=== PATIENT | female | born 1950 | race Caucasian/White ===

== ENCOUNTER 2024-10-24 17:52 | Emergency (ER) | payer BC, SELFPAY ==
--- NOTE | ~2024-10-24 | CT_ITS ---
CLINICAL HISTORY: right flank pain CT abdomen and pelvis without contrast Comparison: None Findings: No consolidation or effusion. Large hiatal hernia. There are 2 rounded calculi within the distal right ureter, just above the ureterovesicular junction, the larger measuring up to 3 mm. There is mild resulting hydroureteronephrosis. No left urinary calculus. The liver demonstrates cysts. The spleen, adrenal glands and pancreas are unremarkable. No bowel obstruction, free air, free fluid, abscess or adenopathy. Left adnexal cyst measuring up to 6.7 cm. Moderate atherosclerotic disease. No acute osseous finding. Moderate rotatory scoliosis present. Impression: There are calculi within the distal right ureter just above the ureterovesicular junction. Mild resulting hydroureteronephrosis. 6.7 cm left adnexal cyst. Given patient age, outpatient ultrasound recommended. Several incidental findings. This document has been electronically signed by: Talat Hugo MD on 10/24/2024 20:28:34
[2024-10-24 18:10] VITALS: BP 164/84; PULSE 80; O2SAT 98
[2024-10-24 18:15] VITALS: BP 135/59; PULSE 71; RESP 18; TEMP 36.7; O2SAT 97; BMI 33.9
--- OUTSIDE RECORDS SUMMARY | 2024-10-24 19:13 | XMS_ITS | Data Portability ---
Author Organization [facility], [facility] Address [address] [place] [address] Care Team Providers Care Medical Device Engineer Name Role Phone ABI YANG Primary Care Provider [phone] Assessment Encounter Date Assessment Date Assessment LastModified by Organization Details LastModified Time 08/11/2024 08/11/2024 I am seeing the patient today under the supervision of Dr Lynn who was available but who did not see the patient. [email or web address] Not available 08/11/2024 08:24:45 08/14/2024 08/14/2024 Assessment: Patient presents with symptoms that are consistent with knee OA. Demonstrates good understanding of home program, post-operative mechanics for gait and stairs, and expectations following surgery. Plan: Discharge patient to knee OA safe [facility]. Pt to follow up with out-patient PT elsewhere postoperatively [email or web address] Not available 08/14/2024 14:16:42 08/15/2024 08/15/2024 SURGICAL HISTORY AND PHYSICAL PRIMARY DIAGNOSIS: Osteoarthritis of the right knee. REASON FOR ADMISSION: The patient is being admitted for right total knee arthroplasty by Dr. Stinson on 08/22/2024. HISTORY OF PRESENT ILLNESS: Ms. Silva is a very pleasant 74-year-old female with complaints of right-sided knee pain. She has a known longstanding history of right knee osteoarthritis, which has failed conservative management. The patient reports the pain is severe and worse with activity and has gotten to the point where it is affecting her ability to perform activities of daily living as well as daily social tasks. She has tried and failed anti-inflammatory pain medications, Tylenol and home exercise program, and she is now ready to pursue a right total knee by Dr. Stinson on 08/22/2024. PAST MEDICAL HISTORY: 1. Osteoarthritis of the right knee. 2. Obesity with a BMI of 35.3. 3. Hypertension. 4. Hyperlipidemia. 5. Hypothyroidism. 6. Osteoporosis/osteo penia. 7. GERD. 8. Allergic rhinitis. 9. UTIs. Her last one was in 06/2024. She denies any current symptoms. 10. Hiatal hernia. PAST SURGICAL HISTORY: 1. She had an upper endoscopy in the past. 2. Tonsillectomy. 3. Benign ovarian cyst removal. MEDICATIONS: Current list of medications includes: 1. Amlodipine 5 mg in the morning. 2. Atenolol 25 mg daily. 3. Cranberry fotx-qab-kpdfqnu pill. 4. Docusate 100 mg twice a day as needed for constipation. 5. Estradiol 0.1 mg vaginal cream 3 times a week. 6. Flonase Sensimist she uses daily to her bilateral nostrils. 7. Levoxyl 0.112 mg daily at bedtime. 8. Omeprazole 20 mg in the morning. 9. Simvastatin 10 mg at bedtime. 10. Vitamin D. ALLERGIES: No known drug allergies. SOCIAL HISTORY: The patient is . She reports a rare alcoholic beverage. Denies any tobacco or illicit drug use. PHYSICIANS: The patient's primary care physician is Abi Yang M.D. REVIEW OF SYSTEMS: The patient's 12-point review of systems is negative with the exception in the HPI. She does endorse baseline mild constipation. PHYSICAL EXAMINATION: VITAL SIGNS: Weight is 199 pounds. GENERAL: Alert and oriented with normal insight, affect, and grooming. SKIN: Intact without rash or lesions. Nails without clubbing or cyanosis. HEENT: Normocephalic. Conjunctivae are pink. Sclerae are anicteric. NECK: Supple. Trachea midline. CHEST: Lungs are clear to auscultation bilaterally and breathing is unlabored. CARDIOVASCULAR: Heart has a regular rate and rhythm with normal S1, S2. No murmurs, rubs or gallops appreciated. EXTREMITIES: Lower extremities: The patient has negative straight leg raise test bilaterally. Bilateral hips have full range of motion without pain. Bilateral knees with slight valgus alignment, range of motion is 5-120. On the right side, she has severe tenderness and crepitus laterally with no instability and mild effusion. On the left side, she has moderate tenderness and crepitus laterally with no instability and mild effusion. Calves are supple and nontender. Ankle motion is satisfactory. Pedal pulses palpable bilaterally and skin about the feet is intact. PREOPERATIVE DIAGNOSTIC DATA: Orthopedic x-rays demonstrate end-stage osteoarthritis of the right knee. There is kozi-ah-ufcf articulation, subchondral sclerosis and osteophyte formation. EKG reads normal sinus rhythm with a rightward axis at 63 beats per minute. LABORATORY DATA: Demonstrates platelets of 150. Electrolytes within normal limits. BUN, creatinine and coags within normal limits. Hemoglobin A1c is 5.5. ASSESSMENT AND PLAN: The patient has advanced osteoarthritis of the right knee and is now scheduled for right total knee arthroplasty by Dr. Stinson on 08/22/2024, she was seen by the med consult program for preoperative clearance, who considered her a low pulmonary and cardiovascular risk for surgery. She will receive IV TXA and be placed on aspirin postoperatively for DVT prophylaxis. Discharge plans will be to home with services. The patient is unsure whether she would like to stay overnight. She has been counseled regarding the risks and benefits of the proposed procedure. Her questions have been answered and she acknowledges understanding. The patient wishes to proceed with surgery. CONTACTS: Her daughter, Lucila, with a phone number of [phone]. Prescriptions given today include Celebrex. She will require prescriptions for aspirin, MiraLax and pain medicine upon discharge from the hospital. She already takes omeprazole and has Colace. [email or web address] Not available 08/15/2024 12:16:39 Plan of Treatment Reminders Order Date Submit Date Provider Last Modified By Organization Details Last Modified Time Details Appointments RECHECK 15 2024 08:00A Donis Dennis PA-C Not available Not available Not available RECHECK 2024 08:00A Donis Stinson MD Not available Not available Not available Lab None recorded. Referral None recorded. Procedures None recorded. Surgeries None recorded. Imaging XR, knee, 3 view - room 206 RTKR with AL 2024 025 [email or web address], [address], [address], [place], [address], 09/11/2024 16:03:22 Medication Orders amoxicill in 500 mg capsule 2024 025 [id number], [address] [place], [address], 09/05/2024 14:50:28 Celebrex 200 mg capsule 2024 025 [id number], [address] [place], [address], 08/15/2024 11:09:41 Patient TargetsNo targets recorded. Patient InstructionsNo instructions recorded. Reason for Referral None Reported. Results Created Date Observation Date Name Description Value Unit Range Abnormal Flag Note LastModifiedBy Organization Detail LastModifiedTime 08/03/1908/04/2024 CBC WITH DIFFE RENTI AL/PL ATELE T WBC 6.0 x10e3 /uL 3.4-10 .8 normal Not Available [facility] ([facility]) [address] [place], [address], 08/08/2024 16:54:07 08/03/1908/04/2024 CBC WITH DIFFE RENTI AL/PL ATELE T RBC 4.48 x10e6 /uL 3.77-5 .28 normal Not Available [facility] ([facility]) [address] [place], [address], 08/08/2024 16:54:07 08/03/19 25 08/04/2024 CBC WITH DIFFE RENTI AL/PL ATELE T hemoglobin 14.2 g/dL 11.1-1 5.9 normal Not Available [facility] ([facility]) [address] [place], [address], 08/08/2024 16:54:07 08/03/1908/04/2024 CBC WITH DIFFE RENTI AL/PL ATELE T hematocrit 43.0 % 34.0-4 6.6 normal Not Available [facility] ([facility]) [address] [place], [address], 08/08/2024 16:54:07 01/30/20 25 08/04/2024 CBC WITH DIFFE RENTI AL/PL ATELE T MCV 96 fL 79-97 normal Not Available [facility] ([facility]) [address] [place], [address], 08/08/2024 16:54:07 08/03/19 25 08/04/2024 CBC WITH DIFFE RENTI AL/PL ATELE T MCH 31.7 pg 26.6-3 3.0 normal Not Available [facility] ([facility]) [address] [place], [address], 08/08/2024 16:54:07 08/03/19 25 08/04/2024 CBC WITH DIFFE RENTI AL/PL ATELE T MCHC 33.0 g/dL 31.5-3 5.7 normal Not Available [facility] ([facility]) [address] [place], [address], 08/08/2024 16:54:07 08/03/19 25 08/04/2024 CBC WITH DIFFE RENTI AL/PL ATELE T RDW 11.6 % 11.7-1 5.4 below low normal Not Available [facility] ([facility]) [address] [place], [address], 08/08/2024 16:54:07 08/03/19 25 08/04/2024 CBC WITH DIFFE RENTI AL/PL ATELE T platelets 150 x10e3 /uL 150-45 0 normal Not Available [facility] ([facility]) [address] [place], [address], 08/08/2024 16:54:07 08/03/19 25 08/04/2024 CBC WITH DIFFE RENTI AL/PL ATELE T neutrophils 66 % not estab. normal Not Available [facility] ([facility]) [address] [place], [address], 08/08/2024 16:54:07 08/03/19 25 08/04/2024 CBC WITH DIFFE RENTI AL/PL ATELE T lymphs 23 % not estab. normal Not Available [facility] ([facility]) [address] [place], [address], 08/08/2024 16:54:07 08/03/19 25 08/04/2024 CBC WITH DIFFE RENTI AL/PL ATELE T monocytes 8 % not estab. normal Not Available [facility] ([facility]) [address] [facility], [place], [address], 08/08/2024 16:54:07 08/03/19 25 08/04/2024 CBC WITH DIFFE RENTI AL/PL ATELE T eos 2 % not estab. normal Not Available [facility] ([facility]) [address] [facility], [place], [address], 08/08/2024 16:54:07 08/03/19 25 08/04/2024 CBC WITH DIFFE RENTI AL/PL ATELE T basos 1 % not estab. normal Not Available [facility] ([facility]) [address] [place], [address], 08/08/2024 16:54:07 08/03/19 25 08/04/2024 CBC WITH DIFFE RENTI AL/PL ATELE T immature cells DRIVER MANAGER Not Available [facility] ([facility]) [address] [place], [address], 08/08/2024 16:54:07 08/03/19 25 08/04/2024 CBC WITH DIFFE RENTI AL/PL ATELE T neutrophils (absolute) 4.0 x10e3 /uL 1.4-7. 0 normal Not Available [facility] ([facility]) [address] [place], [address], 08/08/2024 16:54:07 08/03/19 25 08/04/2024 CBC WITH DIFFE RENTI AL/PL ATELE T lymphs (absolute) 1.4 x10e3 /uL 0.7-3. 1 normal Not Available [facility] ([facility]) [address] [facility], [place], [address], 08/08/2024 16:54:07 08/03/19 25 08/04/2024 CBC WITH DIFFE RENTI AL/PL ATELE T monocytes(ab solute) 0.5 x10e3 /uL 0.1-0. 9 normal Not Available [facility] ([facility]) [address] [facility], [place], [address], 08/08/2024 16:54:07 08/03/19 25 08/04/2024 CBC WITH DIFFE RENTI AL/PL ATELE T eos (absolute) 0.1 x10e3 /uL 0.0-0. 4 normal Not Available [facility] ([facility]) [address] [facility], [place], [address], 08/08/2024 16:54:07 08/03/19 25 08/04/2024 CBC WITH DIFFE RENTI AL/PL ATELE T baso (absolute) 0.1 x10e3 /uL 0.0-0. 2 normal Not Available [facility] ([facility]) [address] [facility], [place], [address], 08/08/2024 16:54:07 08/03/19 25 08/04/2024 CBC WITH DIFFE RENTI AL/PL ATELE T immature granulocytes 0 % not estab. Not Available [facility] ([facility]) [address] [place], [address], 08/08/2024 16:54:07 08/03/19 25 08/04/2024 CBC WITH DIFFE RENTI AL/PL ATELE T immature grans (abs) 0.0 x10e3 /uL 0.0-0. 1 Not Available [facility] ([facility]) [address] [place], [address], 08/08/2024 16:54:07 08/03/19 25 08/04/2024 CBC WITH DIFFE RENTI AL/PL ATELE T NRBC DRIVER MANAGER Not Available [facility] ([facility]) [address] [facility] [place], [address], 08/08/2024 16:54:07 08/03/19 25 08/04/2024 CBC WITH DIFFE RENTI AL/PL ATELE T hematology comments: DRIVER MANAGER Not Available [facility] ([facility]) [address] [facility], [place], [address], 08/08/2024 16:54:07 08/03/19 25 08/04/2024 ELECT ROLYT E PANEL sodium 142 mmol/ L 134-14 4 normal Not Available [facility] ([facility]) [address] [facility] [place], [address], 08/08/2024 16:54:08 08/03/19 25 08/04/2024 ELECT ROLYT E PANEL potassium 4.1 mmol/ L 3.5-5. 2 normal Not Available [facility] ([facility]) [address] [facility] [place], [address], 08/08/2024 16:54:08 08/03/19 25 08/04/2024 ELECT ROLYT E PANEL chloride 104 mmol/ L 96-106 normal Not Available [facility] ([facility]) [address] [facility] [place], [address], 08/08/2024 16:54:08 08/03/19 25 08/04/2024 ELECT ROLYT E PANEL carbon dioxide, total 24 mmol/ L 20-29 normal Not Available [facility] ([facility]) [address] [facility] [place], [address], 08/08/2024 16:54:08 08/03/19 25 08/04/2024 BUN+C REAT BUN 24 mg/dL 8-27 normal Not Available [facility] ([facility]) [address] [facility] [place], [address], 08/08/2024 16:54:09 08/03/19 25 08/04/2024 BUN+C REAT creatinine 0.92 mg/dL 0.57-1 .00 normal Not Available [facility] ([facility]) [address] [facility], [place], [address], 08/08/2024 16:54:09 08/03/19 25 08/04/2024 BUN+C REAT eGFR 65 mL/mi n/1.7 3 >59 normal Not Available [facility] ([facility]) [address] [facility], [place], [address], 08/08/2024 16:54:09 08/03/19 25 08/04/2024 BUN+C REAT BUN/creatini ne ratio 26 12-28 normal Not Available [facility] ([facility]) [address] [facility], [place], [address], 08/08/2024 16:54:09 08/03/19 25 08/08/2024 PROTH ROMBI N TIME, INR prothrombin time 11.1 sec Refer ence Range : 18 years and older : 9.1 - 12.0 Not Available [facility] [address] [place], [address], 08/08/2024 16:54:10 08/03/19 25 08/08/2024 PROTH ROMBI N TIME, INR INR 1.0 ratio Refer ence Range : >1 month : 0.9 - 1.2 Eff ectiv e Febru sylvia 2024 14111 0 Proth rombi n Time, INR will be made non-o rdera ble. [facility] offer s order code [id number] Proth rombi n Time (PT). For rafal khannar matio n, pleas e conta ct your local [facility] Repre senta tive. Not Available [facility] [address] [place], [address], 08/08/2024 16:54:10 08/03/19 25 08/04/2024 HEMOG LOBIN A1C hemoglobin A1C 5.5 % 4.8-5. 6 normal Predi abete s: 5.7 - 6.4 Diabe jag: >6.4 Glyce floridalma contr ol for adult s with diabe jag: <7.0 Not Available [facility] ([facility]) [address] [facility], [place], [address], 08/08/2024 16:54:11 08/03/19 25 08/04/2024 PTT, ACTIV ATED APTT 27 sec 24-33 normal This test has not been valid ated for monit oring unfra ction ated hepar in thera py. aPTT- based thera peuti c range s for unfra ction ated hepar in thera py have not been estab lishe d. For gener al guide lines on Hepar in monit oring , refer to the [facility] Dire tory of Maureen dickinson. Not Available [facility] ([facility]) [address] [facility], [place], [address], 08/08/2024 16:54:12 08/03/19 25 08/04/2024 GLUCO SE glucose 112 mg/dL 70-99 above high normal Not Available [facility] ([facility]) [address] [place], [address], 08/08/2024 16:54:13 08/03/19 25 08/03/2024 TIFFANY QURESHI V EP DEFAU LT tiffany avila ep default Commen t A hand- writt en panel /prof ile was recei alcides from your offic e. In accor dance with the [facility] Tiffany fraser Test Code Polic y dated January 2003, we have compl eted your order by using the close st curre ntly or forme rly recog nized AMA panel . We have assoleg santizod Elect rolyt e Panel , test code #[address]. If this is not the testi ng you wishe d to recei ve on this speci men, pleas e conta ct the [facility] Clien t Inqui ry/Te chnic al Servi alok Depar tment to fartun fy your order . We appre ciate your busin ess. Not Available [facility] ([facility]) [address] [facility], [place], [address], 08/08/2024 16:54:14 07/14/19 25 07/14/2024 XR, knee, 4 or more view [email or web address] ?Encry pted=s hAaTro YD8dLq bEUv6g %2BXZw aYqtaq 0bqfl% 2Fg9IQ a4ajBk vP9nXo QUaueC m3YtLR FvZlg JJ8mAn HZtai3 8d7858 AC0Kqb 3%2BCU aGjKiQ trMwF INTERFACE [facility] [address], [place], [address], 07/14/2024 11:50:17 07/14/19 25 07/14/2024 XR, knee, 4 or more view [email or web address] ?Encry pted=s hAaTro YD8dLq bEUv6g %2BXZw aYqtaq 0bqfl% 2Fg9IQ a4ajBk vP9nXo QUaueC m3YtLR FvZl [facility] 3g8713 AC0Kqb 3%2BCU aGjKiQ trMwF INTERFACE [facility] [address] [facility] [address], [place], [address], 07/14/2024 11:50:19 08/22/19 25 08/22/2024 XR, knee, 4 or more view No observ ation record ed. [facility] [address] [facility], [place], [address], 08/23/2024 13:41:03 09/06/19 25 09/05/2024 XR, knee, 3 view [email or web address] ?Encry pted=s hAaTro YD8dLq bEUv6g %2BXZw aYqtaq 0bqfl% 2Fg9IQ a4ajBk vP9nXo QUaueC m3YtLR FvZlgJ JJ8mAn HZtai3 2y1111 AC0Kqb XqHWKO kKiQtr MwF INTERFACE [facility] [address], [place], [address], 09/05/2024 14:35:38 09/06/1909/05/2024 XR, knee, 3 view [email or web address] ?Encry pted=s hAaTro YD8dLq bEUv6g %2BXZw aYqtaq 0bqfl% 2Fg9IQ a4ajBk vP9nXo QUaueC m3YtLR FvZlgJ JJ8mAn HZtai3 6i1591 AC0Kqb XqHWKO kKiQtr MwF INTERFACE [facility] [address], [place], [address], 09/05/2024 14:35:39 Result Notes None recorded. Problems Name Problem SNOMED Code Status Onset Date Resolution Date Notes Provider Name and Address Organization Details Recorded Time No complaints 543538793 Active Status : 'A'; Not Available [facility] 4 09:12:22 Pain of knee region 2492751159 Active 2024 LUDIVINA groves [place] - [facility] 5 11:35:42 Bilateral osteoarthr itis of knees 3103150893690 07 Active 2023 LUIGI groves [place] - [facility] 4 09:33:07 Problem Notes None recorded. Procedures Surgical History Date Name Laterality Status Provider Name and Address Organization Details Recorded Time 08/14/19 25 00192 Therapeutic Exercise (1:1) completed Hai Snow, PT [address], [place], [address], [facility] 08/13/2024 09:21:18 08/14/19 25 93412: Low complexity PT Eval completed Hai Snow, PT [address], [place], [address], [facility] 08/13/2024 09:21:22 08/11/19 25 JZKNEE INJ completed Phillip Dennis PA-C [address], [place], [address], [facility] 08/11/2024 08:24:41 05/05/20 24 JZKNEE INJ Jaden completed Phillip Dennis PA-C [address], [place], [address], [facility] 05/05/2024 09:02:38 02/03/20 24 JZKNEE INJ Jaden completed Phillip Dennis PA-C [address], [place], [address], [facility] 02/03/2024 07:16:56 11/17/19 24 Euflexxa Knee Injection Jaden completed LUIGI SHAIKH [facility] 11/09/2023 16:05:31 11/17/19 24 [email or web address] completed Phillip Dennis PA-C [address], [place], [address], [facility] 11/17/2023 08:52:50 11/11/19 24 Euflexxa Knee Injection Jaden completed Phillip Dennis PA-C [address], [place], [address], [facility] 11/11/2023 11:03:06 11/03/19 24 JZKNEE INJ Jaden completed Phillip Dennis PA-C [address], [place], [address], [facility] 11/03/2023 09:57:40 11/03/19 24 Euflexxa Knee Injection Jaden completed LUIGI SHAIKH [facility] 10/27/2023 09:33:06 Imaging Results Imaging Date Name Status LastModified by Organiz [facility] Details LastModified Time 07/14/2024 XR, knee, 4 or more view completed INTERFACE [facility] [address], [place], [address], 07/14/2024 11:50:17 07/14/2024 XR, knee, 4 or more view completed INTERFACE [facility] [address], [place], [address], 07/14/2024 11:50:19 08/22/2024 XR, knee, 4 or more view completed [facility] [address], [place], [address], 08/23/2024 13:41:03 09/05/2024 XR, knee, 3 view completed INTERFACE [facility] [address], [place], [address], 09/05/2024 14:35:38 09/05/2024 XR, knee, 3 view completed [facility]FACE [facility] [address], [place], [address], 09/05/2024 14:35:39 Procedure Notes None recorded. Medical Equipment None Reported. Allergies No known drug allergies Medications Name Sig Start Date Stop Date Status Note LastModified by Organization Details LastModified Time celecoxib 200 mg capsule TAKE 1 CAPSULE BY MOUTH EVERY DAY active Not Available Not Available No t Available amoxicillin 500 mg capsule TAKE 4 CAPSULES BY MOUTH 1 HOUR PRIOR TO PROCEDURE active Not Available Not Available No t Available Levoxyl 100 mcg tablet 01/27 completed Not Available Not Available Not Available simvastatin 10 mg tablet TAKE 1 TABLET DAILY active Not Available Not Available No t Available atenolol 25 mg tablet TAKE 1 TABLET DAILY active Not Available Not Available No t Available amlodipine 5 mg tablet TAKE 1 TABLET DAILY active Not Available Not Available No t Available tramadol 50 mg tablet TAKE 1 TO 2 TABLETS BY MOUTH EVERY 6 HOURS NEEDED FOR MILD PAIN. DO NOT EXCEED 8 TABLETS (400MG) PER DAY. active Not Available Not Available No t Available cephalexin 500 mg capsule TAKE 1 CAPSULE BY MOUTH EVERY 8 HOURS X 7 DAYS :TAKE PROBIOTIC DAILY TO PREVENT DIARRHEA 07/14 completed Not Available Not Available Not Available omeprazole 20 mg capsule,del ayed release TAKE 1 CAPSULE DAILY active Not Available Not Available No t Available Levoxyl 112 mcg tablet TAKE 1 TABLET DAILY active Not Available Not Available No t Available estradiol 0.01% (0.1 mg/gram) vaginal cream INSERT 07/08 APPLICATO RFUL (1GM) VAGINALLY 2 TIMES A WEEK AT BEDTIME active Not Available Not Available No t Available amoxicillin 875 mg-potassiu m clavulanate 125 mg tablet TAKE 1 TABLET BY MOUTH 2 TIMES A DAY,X7 DAYS,INST R:WITH FOOD OR MILK 07/14 completed Not Available Not Available Not Available oxycodone 5 mg tablet TAKE 1 TO 2 TABLETS BY MOUTH EVERY 4 HOURS NEEDED FOR SEVERE PAIN active Not Available Not Available No t Available nitrofurant oin monohydrate /macrocryst als 100 mg capsule TAKE 1 CAPSULE BY MOUTH TWICE A DAY WITH FOOD FOR 5 DAYS 07/14 completed Not Available Not Available Not Available Levoxyl Levoxyl 112MCG Tablet 01/26 completed Statu s: 'Disc ontin ued'; Not Available Not Available Not Available Vitals Date Recorded Body height Body mass index (BMI) Body weight Provider Name and Address Organization Details Last Updated DateTime 08/11/2024 160.66 cm 35.3 kg/m2 10499.07 g Jensen Mak [facility] 08/11/2024 08:00:34 Date Recorded Body height Body mass index (BMI) Body weight Provider Name and Address Organization Details Last Updated DateTime 08/15/2024 160.66 cm 35 kg/m2 78232.88 g RAY Moran [facility] 08/15/2024 10:46:28 Date Recorded Body height Body mass index (BMI) Body weight Body temperature Provider Name and Address Organization Details Last Updated DateTime 09/05/2024 160.66 cm 35 kg/m2 32717.88 g 98 [degF] Robina Glover [facility] 09/05/2024 14:25:46 Date Recorded Body height Provider Name an d Address Organization Details Last Updated DateTime 09/19/2024 160.66 cm ROBINA CANO [facility] 09/19/2024 13:12:42 Social History Question Answer Notes LastModified by Organizat ion Details LastModified Time Tobacco Smoking Status Never Smoker Jensen groves [place] - [facility] 02/03/2024 09:11:56 How Many Times Per Week Do You Consume Alcohol? Less Than 1 Time Per Week Information not available 02/03/2024 Do You Or Have You Ever Used E-cigarettes Or Vape? Never Used Electronic Cigarettes [email or web address] Information not available 02/03/2024 What Is Your Relationship Status? [email or web address] Information not available 02/03/2024 Do You Use Any Illicit Or Recreational Drugs? No [email or web address] Information not available 02/03/2024 Do You Or Have You Ever Used Any Other Forms Of Tobacco Or Nicotine? No [email or web address] Information not available 02/03/2024 Sex: Unknown Functional Status None recorded. Mental Status None recorded. Family History Nothing Reported. Medical History Condition Response Allergies/Hayfever Y Gynecological HistoryNo gynecological history recorded. Obstetrics History GPAL:G 0 P 0 0 0 0 Past Encounters Encounter ID Performer Location Encounter Start Date Encounter Closed Date Diagnosis/Indication Diagnosis SNOMED-CT Code Diagnosis ICD10 Code Diagnosis Note [id number] LINDY Clark [address] [place] [address] 11/03/2023 09:41:10 11/24/2023 12:43:16 Bilateral osteoarthritis of knees [id number] 40790 M17.0 [id number] LINDY Clark [address] [place] [place] [address] 11/11/2023 10:37:58 12/06/2023 11:06:49 Bilateral osteoarthritis of knees [id number] 40155 M17.0 [id number] LINDY Clark [address] [place] [place] [address] 11/17/2023 08:46:05 12/11/2023 14:54:50 Bilateral osteoarthritis of knees [id number] 39995 M17.0 [id number] LINDY Clark [address] [place] [place] [address] 02/03/2024 09:08:20 02/29/2024 09:34:48 Bilateral osteoarthritis of knees [id number] M17.0 [id number] Phillip Dennis PA-C [facility] [address] [place] [address] 05/05/2024 08:39:19 06/02/2024 14:01:28 Bilateral osteoarthritis of knees [id number] 32679 M17.0 [id number] Avelino Stinson MD [facility] [address] [place] [address] 07/14/2024 10:47:30 07/26/2024 14:20:36 Pain of knee region [id number] M25.561 M25.562 G89.29 Bilateral osteoarthritis of knees [id number] M17.0 [id number] Phillip Dennis PA-C [facility] [address] [place] [address] 08/11/2024 07:45:05 08/29/2024 14:22:49 Pain of knee region [id number] M25.561 M25.562 G89.29 [id number] Hai Snow, PT [facility] [address] [place] [address] 08/14/2024 13:25:08 08/14/2024 17:03:20 Osteoarthritis of knee [id number] M17.11 [id number] Reina Paul APRN [facility] [address] [place] [address] 08/15/2024 10:40:25 09/04/2024 07:54:52 Osteoarthritis of right knee joint [id number] M17.11 [id number] Jessica Irizarry PA-C [facility] [address] [place] [address] 09/05/2024 14:09:35 09/20/2024 13:52:19 History of right total knee replacement [id number] 717231 Z96.651 Plan: We will see the patient back for standard postop visit as scheduled. The patient will continue with aggressive physical therapy and advance as tolerated. Continue with an assistive device as needed to help with ambulation . Will continue DVT prophylaxi s as scheduled. Total knee precaution s were reviewed. Pain medication s refilled as needed. Follow-up as scheduled or sooner if any problems are encounterkameron sahu [id number] LINDY Lauren [address] floor [address] [place] [address] 09/19/2024 13:07:14 10/03/2024 11:00:32 History of right total knee replacement [id number] Z96.651 Plan: We will see the patient back for standard postop visit as scheduled. The patient will continue with aggressive physical therapy and advance as tolerated. Continue with an assistive device as needed to help with ambulation . Will continue DVT prophylaxi s as scheduled. Total knee precaution s were reviewed. Pain medication s refilled as needed. Follow-up as scheduled or sooner if any problems are encounterkameron sahu Health Concerns Section Related Observation LastModified by Organization Detai ls LastModified Time None Recorded Concern Status LastModified by Organization Details LastModified Time None Recorded Advance Directives Directive None Recorded Payers Encounter Date Sequence Insurance Name Policy Number Policy Abbott Covered Member ID Abbott Member ID Guarantor Name 08/11/2024 1 [facility] [place]UE (MEDICARE REPLACEMENT PPO) [id number] Zoila Silva [id number] Zoila Silva 08/14/2024 1 [facility] (MEDICARE REPLACEMENT PPO) [id number] Ziola Silva [id number] Zoila Silva 08/15/2024 1 [facility] (MEDICARE REPLACEMENT PPO) [id number] Zoila Silva [id number] Zoila Silva 09/05/2024 1 [facility] (MEDICARE REPLACEMENT PPO) [id number] Zoila Silva [id number] Zoila Silva 09/19/2024 1 [facility] (MEDICARE REPLACEMENT PPO) [id number] Zoila Silva [id number] Zoila Silva Notes Date Note Type Note Provider Name and Address Organization Details Recorded Time 08/14/2024 text/html Patient is 74 ye ar old female, with chronic history of knee pain and OA. She has had knee pain now for almost 5 years. Cortisone helps the left but does not help the right. Presents today for prehab visit for scheduled R TKA on 08/22/24. Reviewed post-operative mobility and mechanics with appropriate assistive device. Has 3 steps into home and 0 steps needed inside home. Demonstrates good understanding of post-operative expectations and HEP. Current vocational status is...RetiredFunction al limitations include restricted knee ROM, difficulty ambulating community distances, and pain navigating stairs. Patient goals are to resume normal stairs, turning, prolonged wb/walking Hai Gwendolyn, PT [address], [place], [address], [facility] 08/14/2024 14:17:11 09/05/2024 text/html I am seeing the patient under the general supervision of {{Dr. Sanchez* Dr. Tejas Chauhan}} who was available but who did not see the patient. HISTORY OF PRESENT ILLNESSPatient presents today {{2 weeks* 4 weeks}} status post {{Left Right*}} total knee arthroplasty by {{Tejas Stinson* Matias Mccormack}}. Overall they are doing quite well. Pain is tolerable on current regimen. Patient is taking {{aspirin* eliquis}} BID for DVT prophylaxis. They are using a {{rolling walker* cane no assistive device}} for ambulation assistance. No neurovascular changes. Range of motion with Physial therapy is : {{ 0-98#}} Diagnostic Imagin view radiographs were ordered, obtained, and reviewed by myself during today's visit at [facility], and demonstrate well maintained alignment of the prosthetic components, no fracture or dislocation, excellent interface. Patella tracking centrally in the groove on merchant view. Jessica Irizarry PA-C [address], [place], [address], [facility] 09/05/2024 14:51:26 09/19/2024 text/html I am seeing the patient under the general supervision of {{Dr. Sanchez* Dr. Tejas Chauhan}} who was available but who did not see the patient. HISTORY OF PRESENT ILLNESSPatient presents today {{2 weeks 4 weeks*}} status post {{Left Right*}} total knee arthroplasty by {{Tejas Stinson* Matias Mccormack}}. Overall they are doing quite well. Pain is tolerable on current regimen. Patient is taking {{aspirin* eliquis}} BID for DVT prophylaxis. They are using a {{rolling walker cane* no assistive device}} for ambulation assistance. No neurovascular changes. Range of motion with Physial therapy is : {{ 0-113#}} Jessica Irizarry PA-C [address] [facility] [address], [place], [address], [facility] 09/19/2024 13:29:39 OBGyn Episode No OBEpisode recorded.
[2024-10-24 19:40] LABS: MANUAL DIFF FLAG NO
[2024-10-24 19:41] LABS: Basophils Absolute Auto 0.1 X10*3/uL (0.0-0.2); Basophils Percent Auto 0.5 % (0-2); Eosinophils Absolute Auto 0.1 X10*3/uL (0.0-0.4); Eosinophils Percent Auto 0.6 % (0-4); Hematocrit 40.3 % (37.0-47.0); Hemoglobin 13.7 g/dl (12.0-16.0); Imm Gran Abs Auto 0.04 X10*3/uL (0.00-0.03); Imm Gran Pct Auto 0.4 % (0.0-0.4); Lymphocytes Absolute Auto 0.8 X10*3/uL (1.2-4.9); Lymphocytes Percent Auto 8.6 % (20-40); Mean Corpuscular Hemoglobin 32.4 pg (27.0-33.0); Mean Corpuscular Volume 95.3 fL (80.0-98.0); Monocytes Absolute Auto 0.6 X10*3/uL (0.1-1.2); Monocytes Percent Auto 6.6 % (2-11); Neutrophils Percent Auto 83.3 % (45-73); Platelet Count 213 X10*3/uL (160-400); Red Blood Count 4.23 X10*6/uL (4.20-5.50); Red Cell Distribution Width 11.9 % (11.0-16.0); White Blood Count 9.6 X10*3/uL (4.8-10.8)
[2024-10-24] MEDS: Ketorolac Tromethamine 15 MG/ML VIAL IVPUSH (19:41)
[2024-10-24 19:42] LABS: Appearance Urine Clear; Color Urine Yellow; Glucose Urine UA Negative (Negative); Leukocyte Esterase Urine Negative (Negative); Nitrite Urine Negative (Negative); PH 5.5 (5.0-9.0); Specific Gravity - Urine >= 1.030 (1.005-1.025); UMIC TRIGGER UACC YES; Urine Blood Large (3+) (Negative); Urine Ketones Trace mg/dL (Negative); Urine Protein Trace mg/dL (Neg-Trace)
[2024-10-24] MEDS: 0.9 % Sodium Chloride 1,000 ML 999 ML IV (19:42)
[2024-10-24 19:52] LABS: Bacteria Urine None Seen (None Seen); Calcium Oxalate Crystals Urine Present; Hyaline Casts Urine 0-2 /LPF (0-2); Squamous Epithelial Cell Urine 0-2 /HPF (0-2); WBC Urine 0-5 /HPF (0-5)
[2024-10-24 20:09] LABS: Alanine Aminotransferase 14 U/L (0-31); Albumin Level 4.3 g/dL (3.5-5.0); Alkaline Phosphatase 123 U/L (39-117); Anion Gap 13 (12-20); Aspartate Amino Transferase 20 U/L (5-31); Bilirubin Total 0.2 mg/dL (0.0-1.0); Blood Urea Nitrogen 22 mg/dL (9-16); Calcium 9.2 mg/dL (8.4-10.2); Carbon Dioxide 25 mmol/L (22-29); Chloride 107 mmol/L (96-108); Creatinine Clr Calc Pharmacy 56.5; Estimated Glomerular Filt Rate 55; Glucose Random 121 mg/dL (60-115); Lipase 18 U/L (8-78); Potassium 3.9 mmol/L (3.3-5.1); Sodium 141 mmol/L (135-145); Total Protein 6.9 g/dL (6.5-8.0)
--- NOTE | 2024-10-24 21:14 | ED_ITS ---
HPI - General Adult General Chief complaint: General Medical Stated complaint: abd pain, back pain, Uti Time Seen by Provider: 10/24/24 19:07 Source: patient, RN notes reviewed and old records reviewed Mode of arrival: EMS Limitations: no limitations History of Present Illness ED Provider: Pascale JAMA narrative: 74-year-old female presents for evaluation of right flank pain. Patient has had the pain since this afternoon. She reports 3 days ago she had some difficulty urinating and burning with urination She had a urinalysis ordered 2 days ago and was started on Macrobid. A few hours prior to arrival she developed severe right mid back pain that radiates around her right lower abdomen. The pain was a sharp, 10/10. It was severe for about 30 minutes before improving Pain has not completely resolved. She denies any history of kidney stones She was status post appendectomy from exploratory laparotomy as a child Related Data Previous Rx's ?Medication ?Instructions ?Recorded ondansetron 4 mg disintegrating 4 mg PO Q8H PRN nausea and 10/24/24 tablet vomiting #20 tabs tamsulosin 0.4 mg capsule (Flomax) 0.4 mg PO DAILY #7 caps 10/24/24 Allergies Allergy/AdvReac Type Severity Reaction Status Date / Time Seasonal Allergies Allergy Sneezing Verified 10/24/24 18:18 Review of Systems 2 Constitutional: Constitutional: Denies body ache(s), Denies chills, Denies fever(s) and Denies headache(s) Eyes: Eyes: Denies blurry vision ENT: Denies vertigo, Denies dizziness and Denies headache(s) Cardiovascular: Cardiovascular: Denies chest pain and Denies dyspnea Respiratory: Respiratory: Denies cough and Denies dyspnea Gastrointestinal: Gastrointestinal: Reports abdominal pain, Reports nausea and Denies vomiting Genitourinary: Genitourinary: Reports difficulty voiding, Reports dysuria, Denies pelvic pain, Reports urinary hesitancy and Denies vaginal discharge Musculoskeletal: Musculoskeletal: Reports back pain Integumentary/Breasts: Skin/Breast: Denies rash Neurologic: Denies vertigo, Denies dizziness and Denies headache(s) [facility] Social History Social History Smoked in Last 30 Days: No Use of substances other than those prescribed or required for medical reasons: No Advance Directives: No Advance Directives Information Provided: No Do you have a plan to hurt others: No Plan Physical Exam ED Vital Signs: Vital Signs - 24 hr 10/24/24 18:15 10/24/24 21:26 Temperature 98.0 F 97.9 F Pulse Rate 71 64 Respiratory Rate 18 16 Blood Pressure 135/59 L 119/51 L Pulse Oximetry 97 94 Oxygen Delivery Method Room Air Room Air BMI result Body Mass Index 33.9 Const General: healthy appearing, comfortable, no acute distress, alert and awake Nutritional Appearance: well nourished Orientation/consciousness: patient oriented x3 HENMT Head: Yes normocephalic and Yes atraumatic Eyes Eyelids: Yes eyelids normal Conjunctivae: conjunctivae normal Sclerae: sclerae normal Corneas: corneas normal Pupils: Equal, round and reactive pupils present EOM: EOMs intact bilaterally Neck Neck: Yes full ROM Resp Effort & Inspection: normal respiratory effort, able to speak in complete sentences and not labored GI Inspection: No distended Palpation (GI): Soft to palpation, not firm, nontender, no guarding and not rigid General: Yes CVA tenderness on the right; not on the left Back/Spine/Pelvis Back: CVA tenderness Skin General skin exam: elasticity normal Neuro General: patient oriented x3 Cranial nerves: Yes Equal, round and reactive pupils present and Yes Bilaterally intact EOM present Cognition (Neuro): normal cognition Extrem Other: Moving all extremities well without any obvious deformities Course Reevaluation(s) Reevaluation #1: Patient's workup is significant for obstructive uropathy which fits her clinical picture. I discussed incidental findings with her including the left adnexal mass. She will follow up with her PCP. Time: 21:30 Medications Administered Discontinued Medications Generic Name Dose Route Start Last Admin Trade Name Freq PRN Reason Stop Dose Admin Sodium Chloride 1,000 mls @ 999 mls/hr 10/24/24 19:30 10/24/24 19:42 Ns IV 10/24/24 20:30 999 mls/hr .Q1H1M GURPREET Administration Ketorolac Tromethamine 15 mg 10/24/24 19:23 10/24/24 19:41 Ketorolac Tromethamine 15 Mg/Ml Vial IVPUSH 10/24/24 19:24 15 mg ONCE ONE Administration Medical Decision Making Medical Decision Making MDM Narrative: 74-year-old female presents for evaluation of right flank pain. Her history exam is most consistent with a obstructive uropathy. She was treated for a UTI but urine culture is still pending. She is status post appendectomy. Else with the differential includes muscle strain, constipation, biliary colic but her pain is lower than anticipated for biliary colic. Differential Diagnosis Differential Diagnoses: The differential diagnosis associated with the presentation includes As above Lab Data MDM Lab Attestation statement: I reviewed the patient's lab results. No leukocytosis or anemia. Normal platelet count. No electrolyte abnormalities warranting intervention. Urinalysis is positive for hematuria but no evidence of infection. 10/24/24 19:36 10/24/24 19:36 Labs: Lab Results 10/24/24 10/24/24 Range/Units 19:33 19:36 WBC 9.6 (4.8-10.8) X10*3/uL RBC 4.23 (4.20-5.50) X10*6/uL Hgb 13.7 (12.0-16.0) g/dl Hct 40.3 (37.0-47.0) % MCV 95.3 (80.0-98.0) fL MCH 32.4 (27.0-33.0) pg MCHC 34.0 (31.0-35.0) g/dl RDW 11.9 (11.0-16.0) % Plt Count 213 (160-400) X10*3/uL MPV 8.0 L (9.4-12.3) fL Immature Gran % (Auto) 0.4 (0.0-0.4) % Neut % (Auto) 83.3 H (45-73) % Lymph % (Auto) 8.6 L (20-40) % Chase % (Auto) 6.6 (2-11) % Eos % (Auto) 0.6 (0-4) % Baso % (Auto) 0.5 (0-2) % Lymph # (Auto) 0.8 L (1.2-4.9) X10*3/uL Chase # (Auto) 0.6 (0.1-1.2) X10*3/uL Eos # (Auto) 0.1 (0.0-0.4) X10*3/uL Baso # (Auto) 0.1 (0.0-0.2) X10*3/uL Abs Immat Gran (auto) 0.04 H (0.00-0.03) X10*3/uL Absolute Neuts (auto) 8.0 (2.0-8.3) x10*3/uL Absolute Nucleated RBC 0.000 (0.0-0.012) X10*3/uL Nucleated RBC % (auto) 0.0 (0.0-0.2) /100WBC Sodium 141 (135-145) mmol/L Potassium 3.9 (3.3-5.1) mmol/L Chloride 107 (96-108) mmol/L Carbon Dioxide 25 (22-29) mmol/L Anion Gap 13 (12-20) BUN 22 H (9-16) mg/dL Creatinine 0.98 (0.5-1.4) mg/dL Estim Creat Clear Calc 56.5 Estimated GFR 55 Random Glucose 121 H (60-115) mg/dL Calcium 9.2 (8.4-10.2) mg/dL Total Bilirubin 0.2 (0.0-1.0) mg/dL AST 20 (5-31) U/L ALT 14 (0-31) U/L Alkaline Phosphatase 123 H (39-117) U/L Total Protein 6.9 (6.5-8.0) g/dL Albumin 4.3 (3.5-5.0) g/dL Lipase 18 (8-78) U/L Urine Color Yellow Urine Appearance Clear Urine pH 5.5 (5.0-9.0) Ur Specific [place] >= 1.030 H (1.005-1.025) Urine Protein Trace (Neg-Trace) mg/dL Urine Glucose (UA) Negative (Negative) mg/dL Urine Ketones Trace (Negative) mg/dL Urine Blood Large (3+) H (Negative) Urine Nitrite Negative (Negative) Ur Leukocyte Esterase Negative (Negative) Urine RBC 6-10 H (0-2) /HPF Urine WBC 0-5 (0-5) /HPF Ur Squamous Epith Cells 0-2 (0-2) /HPF Calcium Oxalate Crystal Present Urine Bacteria None Seen (None Seen) Hyaline Casts 0-2 (0-2) /LPF Independent Interpretation I performed an independent interpretation of an: CT Scan Interpretation: Agree with Radiology interpretation Radiology Impression Discussion of test interpretation with radiology: I have reviewed the radiologist's reading. Radiologist Impression: Findings: No consolidation or effusion. Large hiatal hernia. There are 2 rounded calculi within the distal right ureter, just above the ureterovesicular junction, the larger measuring up to 3 mm. There is mild resulting hydroureteronephrosis. No left urinary calculus. The liver demonstrates cysts. The spleen, adrenal glands and pancreas are unremarkable. No bowel obstruction, free air, free fluid, abscess or adenopathy. Left adnexal cyst measuring up to 6.7 cm. Moderate atherosclerotic disease. No acute osseous finding. Moderate rotatory scoliosis present. Impression: There are calculi within the distal right ureter just above the ureterovesicular junction. Mild resulting hydroureteronephrosis. 6.7 cm left adnexal cyst. Given patient age, outpatient ultrasound recommended. Several incidental findings. This document has been electronically signed by: Talat Hugo MD on 10/24/2024 20:28:34 Discharge Plan Discharge Clinical Impression: Acute unilateral obstructive uropathy Patient Disposition: Home, Self-Care Instructions: Ureteral Stones (ED) Additional Instructions: Your CT scan showed kidney stones that were stuck right before the bladder on the right There was a total of 2 stones in the largest measuring 3 mm These should pass on their own. You may use ibuprofen/Tylenol for pain. You may use your tramadol for severe breakthrough pain Take Flomax daily and Zofran as needed for nausea and vomiting You may follow-up with urology at the number provided. Return for new or worsening symptoms Your CT scan also showed a 6.7 cm left adnexal cyst which should be followed up with an outpatient ultrasound with in the next few weeks CT abdomen and pelvis without contrast Comparison: None Findings: No consolidation or effusion. Large hiatal hernia. There are 2 rounded calculi within the distal right ureter, just above the ureterovesicular junction, the larger measuring up to 3 mm. There is mild resulting hydroureteronephrosis. No left urinary calculus. The liver demonstrates cysts. The spleen, adrenal glands and pancreas are unremarkable. No bowel obstruction, free air, free fluid, abscess or adenopathy. Left adnexal cyst measuring up to 6.7 cm. Moderate atherosclerotic disease. No acute osseous finding. Moderate rotatory scoliosis present. Impression: There are calculi within the distal right ureter just above the ureterovesicular junction. Mild resulting hydroureteronephrosis. 6.7 cm left adnexal cyst. Given patient age, outpatient ultrasound recommended. Several incidental findings. This document has been electronically signed by: Talat Hugo MD on 10/24/2024 20:28:34 Prescriptions: New tamsulosin [Flomax] 0.4 mg capsule 0.4 mg PO DAILY Qty: 7 0RF ondansetron 4 mg tablet,disintegrating 4 mg PO Q8H PRN (Reason: nausea and vomiting) Qty: 20 0RF Referrals: Maryann Fajardo MD [Physician] - (obstructive uropathy) Print Language: Icelandic
[2024-10-24 21:26] VITALS: BP 119/51; PULSE 64; RESP 16; TEMP 36.6; O2SAT 94
[2024-10-24 21:45] VITALS: BP 119/51; PULSE 64; RESP 16; TEMP 36.6; O2SAT 94
== END 2024-10-24 21:46 | disposition home or self-care (01) ==
PROVIDERS: Physician Assistant; Emergency Provider Emergency Medicine; PCP Family Medicine
DX: N13.9 Obstructive and reflux uropathy, unspecified (principal); R10.2 Pelvic and perineal pain; R11.0 Nausea; Z79.899 Other long term (current) drug therapy
CPT/HCPCS: 36415; 74176; 80053; 81001; 83690; 85025; 96361; 96374; 99284; J1885

== ENCOUNTER → 2024-10-24 19:23 | Outpatient (BNV) | payer BC, SELFPAY | PROVIDERS: Emergency Provider Emergency Medicine; PCP Family Medicine; Visit Provider Radiology Vascular & Interventional Radiology | DX: N20.1 Calculus of ureter (principal); N83.202 Unspecified ovarian cyst, left side | CPT/HCPCS: 74176 ==

== ENCOUNTER 2024-12-20 13:36 | Outpatient (AMB) | payer BC, SELFPAY ==
--- NOTE | 2024-12-20 14:06 | MHC.OFFVIS ---
Intake Visit Reasons: kidney stones Intake Note: Patient is present for KIDNEY STONES Urology Medication:TAMSULOSIN Antibiotic Allergy:NONE Blood Thinner:NONE Hvac R Instructor Required: No Allergies Seasonal Allergies Allergy (Verified 12/20/24 14:07) Sneezing HPI Comments Details: Zoila is a very pleasant female. She is a patient of . She is seen for the following urologic conditions - nephrolithiasis - recurrent UTI - bladder instability Seen in emergency room with distal left ureteric stone No further symptoms appears to have passed Recent renal ultrasound with primary care showed no evidence of hydronephrosis Has recurrent UTI Treated with estradiol Bladder instability Trial low-dose tadalafil Review of Systems Const Denies chills and Denies fever(s) Card Reports no additional complaints and Denies syncope Resp Denies cough GI Denies abdominal pain and Denies heartburn Reports as per HPI and Denies change in libido Neuro Denies syncope Psych Denies change in libido Endo Denies change in libido Physical Exam Const General: cooperative, healthy appearing, comfortable and no acute distress Orientation/consciousness: patient oriented x3 HEENT Face and sinus: Yes normal facial exam Mouth: moist mucous membranes Neck Neck: Yes normal visual inspection, Yes full ROM and Yes trachea midline Chest Chest palpation & inspection: normal inspection of the chest Resp Effort & Inspection: normal respiratory effort, able to speak in complete sentences and no respiratory distress GI Inspection: Yes normal to inspection Back/Spine/Pelvis Cervical Spine: normal cervical lordosis Thoracic/Lumbar Spine: thoracic and lumbar spine normal to inspection Skin General skin exam: no rashes or lesions noted Neuro General: patient oriented x3, gait normal, tone normal and moves all extremities Extrem General: Yes normal to inspection and Yes capillary refill normal Results AMB Urinalysis, Automated UA Leukoctes 500 Dominick/uL Last Edit by GORDO Alvarado on 12/20/24 15:43 UA Nitrite Negative Last Edit by GORDO Alvarado on 12/20/24 15:43 UA Urobilinogen 0.2 mg/dL Last Edit by GORDO Alvarado on 12/20/24 15:43 UA Protein 30 mg/dL Last Edit by GORDO Alvarado on 12/20/24 15:43 UA pH 6.0 Last Edit by GORDO Alvarado on 12/20/24 15:43 UA Blood 0 Yusuf/uL Last Edit [facility] on 12/20/24 15:43 UA Specific [place] 1.025 Last Edit by GORDO Alvarado on 12/20/24 15:43 UA Ketone Positive Last Edit by GORDO Alvarado on 12/20/24 15:43 UA Bilirubin 2 mg/dL Last Edit by Silvia Thomas [facility] on 12/20/24 15:43 UA Glucose 0 mg/dL Last Edit by Silvia Thomas [facility] on 12/20/24 15:43 Assessment & Plan Assessment & Plan (1) Recurrent UTI (urinary tract infection): Code(s): N39.0 - Urinary tract infection, site not specified Category: Medical (2) Detrusor instability of bladder: Code(s): N32.81 - Overactive bladder Category: Medical Plan Trial low-dose tadalafil for bladder stability Continue with Estrace applied per urethra Orders: Orders Urine Culture Today N39.0 - Urinary tract infection, site not specified AMB Urinalysis Automated Today Z13.9 - Encounter for screening, unspecified Medications: New tadalafil 5 mg PO DAILY 90 tabs 0RF bladder instablity 90 days N32.81 - Overactive bladder Patient Instructions: This note is constructed using voice recognition software. While every effort has been made to ensure accuracy business unit director errors may have been included. Imaging studies, laboratory and physical exam results were discussed and reviewed in detail. No major barriers to patient understanding were identified. An opportunity to ask questions regarding the treatment plan was provided. All questions were answered. The patient expressed understanding and agreement with the above treatment plan. The patient is aware they should contact our office by phone for worsening of their current condition or the appearance of new urologic symptoms. Compliance is encouraged with any medications and followup testing that is ordered. It is a privilege to participate in the urologic care of your patient. If you have any questions or concerns regarding treatment for the above conditions, or other urologic issues, please do not hesitate to contact me. The office telephone contact is [phone]. Sincerely, Dr Andrew Lundberg MD, [facility] - Urology Compassionate Specialist Care for the Genitourinary System Coding Level of Care Code New Pt Level 4 (81762) Diagnoses Recurrent UTI (urinary tract infection) N39.0 Detrusor instability of bladder N32.81
== END 2024-12-20 14:43 | disposition home or self-care (01) ==
LOC: HO.HUSH 13:37
PROVIDERS: PCP Family Medicine; Visit Provider Urology
DX: N39.0 Urinary tract infection, site not specified (principal); N32.81 Overactive bladder; Z13.9 Encounter for screening, unspecified
CPT/HCPCS: 99204

== ENCOUNTER 2024-12-20 14:23 | Outpatient (REF) | payer BC, SELFPAY | END 2024-12-20 14:24 | disposition home or self-care (01) | LOC: HO.LAB 14:23 | PROVIDERS: Visit Provider Urology | DX: N39.0 Urinary tract infection, site not specified (principal) | CPT/HCPCS: 81003; 87086; 87088; 87186 ==